=== PATIENT | male | born 1960 | race Caucasian/White ===

== ENCOUNTER → 2018-11-16 | Outpatient (CLI) | payer OTHER ==
[~2018-11-16] VITALS: Ht 165.1 cm; Wt 56.2 kg
[~2018-11-16] MED LIST: ACTOS15 MG PO; ALENDRONATE SOD70 MG PO; ALPRAZOLAM2 MG PO; BASAGLAR K100 UNIT/1 SUBQ; BENTYL 20 MG TA20 M1 PO; BUTALB-APAP-CA1 EACH PO; COL-RITE100 MG PO; FENTANYL PATCH75 MCG; FLONASE 0.05%50 MCG NASAL; GABAPENTIN100 MG PO; GABAPENTIN800 M1 PO; GEMFIBROZIL 60600 M1 PO; GEMFIBROZIL 60600 MG PO; GLUCOPHAGE XR500 MG PO; HYOSCYAMINE0.375 M2 DISSOLVE; LASIX 20 MG TAB20 MG PO; LEVAQUIN 500 M500 M2 PO; LISINOPRIL10 MG PO; LOPERAMIDE 2 MG2 M1 PO; MOBIC15 MG PO; MS CONTIN15 MG PO; NOVOLOG FL100 UNIT/M SUBQ; OMEPRAZOLE40 MG PO; OXYCODONE HCL15 MG PO; PREDNISONE 10 M10 MG PO; RESTASIS1 EACH OPHTHALMIC; SERTRALINE HCL100 MG PO; SKELAXIN 800 M800 M1 PO; TOPAMAX50 MG PO; TRAMADOL 50 MG50 MG PO; TRAZODONE 150150 M1 PO; TYLENOL325 MG PO; VENTOLIN HFA 1818 GM INH; ZOLOFT 50 MG TA50 M1 PO; ZYRTEC10 M2 PO
[2018-11-16 07:08] VITALS: BP 103/61
--- NOTE | 2018-11-16 08:25 | EKG ---
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 : 1960 Requested By: Sean Weeks Order Number: [id number] MD: Randal Salinas Measurements Intervals [place] Rate: 93 P: 51 IL: 122 QRS: 37 QRSD: 75 T: 31 QT: 330 QTc: 411 Interpretive Statements Sinus rhythm Early R-wave progression No previous ECG available for comparison Electronically Signed On 11-16-2018 8:25:38 CDT by Randal Salinas [email or web address] ��������������������������������������������� <ELECTRONICALLY SIGNED> ���������������������������������������� By: Randal Salinas MD, [facility] ��������������������������������������������� 11/16/18 0825 [phone] Randal Salinas MD, FACC /EPI
[2018-11-16 10:05] VITALS: BP 103/61
[2018-11-16 10:09] VITALS: BP 103/61
== END ==
LOC: CATH 06:36
DX: J98.4 Other disorders of lung (principal); F41.9 Anxiety disorder, unspecified; F32.9 Major depressive disorder, single episode, unspecified; G43.909 Migraine, unspecified, not intractable, without status migrainosus; F17.210 Nicotine dependence, cigarettes, uncomplicated; J44.9 Chronic obstructive pulmonary disease, unspecified; I10 Essential (primary) hypertension; K21.9 Gastro-esophageal reflux disease without esophagitis; Z98.890 Other specified postprocedural states; K58.9 Irritable bowel syndrome, unspecified; E11.9 Type 2 diabetes mellitus without complications
CPT/HCPCS: 50010; 70005

== ENCOUNTER 2019-03-14 05:21 | Inpatient (IN) | payer OTHER ==
[2019-03-04 11:19] LABS: ABSOLUTE NEUTROPHILS 4.9 thou/uL (1.4-8.2); BASOPHILS 1.3 % (0.0-2.0); EOSINOPHILS 4.1 % (0.0-3.0); HEMATOCRIT 35.4 % (42.0-52.0); HEMOGLOBIN 11.7 gm/dL (14.0-18.0); LYMPHOCYTES 38.9 % (24.0-44.0); MCH 30.6 pg (26.0-34.0); MCHC 33.1 g/dL (28.0-37.0); MCV 92.6 fL (80.0-100.0); MONOCYTES 5.3 % (1.0-8.0); PLATELET COUNT 330 thou/uL (150-400); POLYS 50.4 % (36.0-66.0); RBC 3.83 mil/uL (4.50-6.00); RDW 16.9 % (10.5-14.5); WBC 9.8 thou/uL (4.0-11.0)
[2019-03-04 11:25] LABS: ALBUMIN 3.6 g/dL (3.4-5.0); CALCIUM 8.7 mg/dL (8.5-10.1); CREATININE 1.9 mg/dL (0.7-1.3); POTASSIUM 4.7 mmol/L (3.5-5.1); TOTAL BILIRUBIN 0.2 mg/dL (<0.1-1.0); TOTAL PROTEIN 7.8 g/dL (6.4-8.2)
[2019-03-04 11:30] LABS: APTT 33.4 Seconds (24.5-32.8); PROTIME 10.4 Seconds (9.3-11.4)
[2019-03-04 12:25] LABS: URINE BILIRUBIN NEGATIVE (Negative); URINE BLOOD NEGATIVE (Negative); URINE CLARITY CLEAR; URINE COLOR YELLOW; URINE GLUCOSE-RANDOM* NEGATIVE (Negative); URINE KETONES NEGATIVE (Negative); URINE LEUKOCYTES-REFLEX NEGATIVE (Negative); URINE NITRITE-REFLEX NEGATIVE (Negative); URINE PROTEIN (DIPSTICK) NEGATIVE (Negative); URINE SPECIFIC GRAVITY 1.025 (1.005-1.035); URINE UROBILINOGEN 0.2 E.U./dl (0.2-1.0)
--- NOTE | 2019-03-04 16:12 | EKG ---
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
[2019-03-14] VITALS (8 sets, daily range): BP systolic 90–119; BP diastolic 34–54
[~2019-03-14] VITALS: Ht 162.6 cm; Wt 72.5 kg
--- NOTE | ~2019-03-14 | HC ---
[facility] [place] [address] CONSULTATION Name: JENNIFER YOON Jocelynn Room #: 244-P [facility] IN M.R.#: [id number] Admission: 03/14/19 Attend Phys: Isai Hurtado MD Discharge: Date of : 64 Report #: [id number] THIS REPORT FOR: //name// CC: Jeffry Hurtado PULMONARY CONSULTATION REFERRING PHYSICIAN: Dr. Hurtado. REASON FOR REFERRAL: Post hypoxia. HISTORY OF PRESENT ILLNESS: The patient is a 58-year-old white male with a history of cavitary lung lesion. Earlier yesterday, patient underwent a right upper lobe lobectomy. A pulmonary consultation requested. The patient is followed longitudinally by Dr. Khris Santos. The patient was found to have cavitary lesion involving the right upper lung field. Chest x-ray also revealed bilateral interstitial infiltrates. The patient had undergone 2 previous bronchoscopies without definitive diagnosis. Of note, from the last bronchoscopy, the culture grew Asha glabrata. Postoperatively, the patient is somewhat confused, restless, hypoxic. Saturation adequate with supplemental oxygen. He does have mild COPD. His previous PFTs showed FEV1 of 2.56 liters, 88% predicted, FEV1/FVC ratio in the past has been around 64%. FVC is normal. PAST MEDICAL HISTORY: As mentioned above including chronic anemia, anxiety disorder, chronic back pain, depression, diabetes mellitus type 2, chronic fatigue, gastroesophageal reflux disease, hypertension, hyperlipidemia, lumbosacral spondylolysis. PAST SURGICAL HISTORY: As mentioned above including carpal tunnel surgery, cholecystectomy, prior neck surgery. ALLERGIES: NABUMETONE, reactions unspecified; SULFA DRUGS, reactions unspecified. HOME MEDICATIONS: List reviewed and this would include Proventil MDI 2 puffs p.r.n., nebulized albuterol p.r.n., Fosamax 70 mg once a day, Xanax 2 mg p.o. at bedtime p.r.n., Zyrtec 10 mg once a day, Restasis eyedrops, Voltaren ointment, Bentyl 20 mg once a day, Flonase 1 squirt each nostril every day, Neurontin 800 mg p.o. t.i.d., Lopid 600 mg p.o. b.i.d., insulin supplements, Ativan, nasal spray 2 puffs every day, Toradol 30 mg IV p.r.n., Mobic 15 mg p.o. every day, Glucophage 500 mg p.o. b.i.d., MS Contin 15 mg twice a day, Prilosec 40 mg once a day, oxycodone 15 mg q. 6 hours p.r.n., Actos 15 mg every day, Zoloft [address] [address] CONSULTATION Name: JENNIFER YOON Room #: 244-P [facility] IN M.R.#: [id number] Admission: 03/14/19 Attend Phys: Isai Hurtado MD Discharge: Date of : 64 Report #: [id number] p.o. every day, trazodone 150 mg once a day. FAMILY HISTORY: Notable for diabetes in the parents. SOCIAL HISTORY: The patient has smoked, but quit several years ago. Smoked about less than a pack a day for 30 years. He denies any alcohol use. REVIEW OF SYSTEMS: As mentioned above, currently is deferred as the patient is confused. PHYSICAL EXAMINATION: GENERAL: He is restless, dyspneic, tolerating BiPAP. VITAL SIGNS: Temperature is 99.0 degrees Fahrenheit, pulse is 110, respiratory rate is 15, blood pressure is 130/66 mmHg, saturation 100%. HEENT: Normocephalic, atraumatic. NECK: Supple, without lymphadenopathy or thyromegaly. CHEST: Breath sounds are mildly coarse bilaterally. No obvious wheezes. Chest wall, status post tube thoracostomy in the right lower chest area. CARDIOVASCULAR: Normal S1, S2. There are no murmurs or gallop. There is no JVD. There is no carotid bruit. Pulses are 2+/4+ bilaterally. ABDOMEN: Soft, nontender, no organomegaly or masses felt. GENITOURINARY: Deferred. RECTAL: Deferred. EXTREMITIES: There is no edema, cyanosis or clubbing. LABORATORY DATA: Portable chest x-ray shows reexpansion of the right lung. Mild bilateral chronic infiltrates are again noted. Electrolytes are normal except for creatinine of 2.7, BUN is 55. Liver enzymes are mildly abnormal. WBC is 13,500, hemoglobin 8.2. Arterial blood gas revealed pH 7.22, pCO2 of 43 and pO2 of 100 on FiO2 of 100%. IMPRESSION: 1. Acute hypoxic respiratory failure in this 58-year-old white male. Etiology probably related to underlying COPD along with undefined interstitial lung disease. Infection may also be considered. Pulmonary embolus is felt to be less likely. 2. Acid base disorder, primarily metabolic acidosis. 3. Chronic kidney disease, acute kidney injury, metabolic acidosis. 4. Interstitial infiltrates, review of his previous chest x-ray showed that infiltrates has been present for some time. 5. Cavitary lung disease, status post right upper lobe lobectomy. Two previous bronchoscopies in the past were performed. On the last bronchoscopy, the culture result grew Asha glabrata. In discussing the case with Dr. Hurtado, the preliminary pathology report suggests no evidence of neoplasm. This might represent an granulomatous process to the possible fungal infection. Consult ID. [facility] [address] [place] [address] CONSULTATION Name: JENNIFER YOON Room #: 244-P ADM IN M.R.#: [id number] Admission: 03/14/19 Attend Phys: Isai Hurtado MD Discharge: Date of : 64 Report #: [id number] 6. Hypertension. 7. Encephalopathy, toxic and metabolic, improving. 8. Chronic pain, spinal stenosis, prior surgical spine surgery. 9. Diabetes mellitus type 2, hypertension, gastroesophageal reflux disease. RECOMMENDATIONS: We will continue noninvasive ventilation, bronchodilators, corticosteroids will be continued. DVT and GI prophylaxis recommended. Await culture results from the lung specimen. Consult Infectious Disease. Thank you for this consultation. By: 1133 1751 Lance Cervantes MD /nt
[~2019-03-14 05:21] MED LIST changes: +ACCUNEB SO1.25 MG/1 INH; +GLUCOSAMINE CH1 EAC4 PO
[2019-03-14 15:40] LABS: BE(vivo) -13.5 mmol/L (-2 to +3); HCO3 15.3 mmol/L (22.0-26.0); pH 7.122 (7.360-7.450); sO2 92.1 % (92.0-98.0)
[2019-03-14 17:40] LABS: BE(vivo) -18.1 mmol/L (-2 to +3); HCO3 9.8 mmol/L (22.0-26.0); PCO2 30.9 mmHg (35.0-45.0); PO2 77.3 mmHg (80.0-100.0); pH 7.117 (7.360-7.450); sO2 90.9 % (92.0-98.0)
[2019-03-14 18:15] LABS: HEMOGLOBIN 9.5 gm/dL (14.0-18.0); MCH 30.5 pg (26.0-34.0); MCV 92.6 fL (80.0-100.0); RBC 3.13 mil/uL (4.50-6.00); RDW 15.6 % (10.5-14.5); WBC 18.3 thou/uL (4.0-11.0)
[2019-03-14 18:28] LABS: ALBUMIN 2.9 g/dL (3.4-5.0); CALCIUM 8.6 mg/dL (8.5-10.1); CREATININE 3.1 mg/dL (0.7-1.3); TOTAL BILIRUBIN 0.2 mg/dL (<0.1-1.0); TOTAL PROTEIN 7.3 g/dL (6.4-8.2)
[2019-03-14 18:30] LABS: POTASSIUM 6.9 mmol/L (3.5-5.1)
[2019-03-14 19:02] LABS: URINE CREATININE-RANDOM* 81.3 mg/dL
[2019-03-14 20:08] LABS: CALCIUM 8.2 mg/dL (8.5-10.1)
[2019-03-14 20:11] LABS: POTASSIUM 6.2 mmol/L (3.5-5.1)
--- NOTE | 2019-03-14 20:40 | NUR ---
1640-RECEIVED PT FROM RR W BIPAP IN PLACE.--VW 1800- UPDATED.ORDERS NOTED.--VW 1830- IN TO SEE.--VW 1900-CARE TURNED OVER TO ONCOMING RN.CONSULT PLACED TO RENAL.CHANEL Rodriguez BUSY X 3 ATTEMPTS-PASSED ONTO [employer] SALES CONSULT NEEDED TO BE PLACED. SPOKE W ~1730 RE:CONSULT.--VW
[2019-03-14 22:45] LABS: URINE BILIRUBIN NEGATIVE (Negative); URINE BLOOD 2+ (Negative); URINE CLARITY SL CLOUDY; URINE COLOR YELLOW; URINE GLUCOSE-RANDOM* NEGATIVE (Negative); URINE KETONES NEGATIVE (Negative); URINE LEUKOCYTES 1+ (Negative); URINE NITRITE NEGATIVE (Negative); URINE PROTEIN (DIPSTICK) TRACE (Negative); URINE UROBILINOGEN 0.2 E.U./dl (0.2-1.0)
[2019-03-14 23:09] LABS: CALCIUM 8.1 mg/dL (8.5-10.1)
[2019-03-14 23:11] LABS: POTASSIUM 4.7 mmol/L (3.5-5.1)
[2019-03-14 23:19] LABS: SQUAMOUS 0-3 Few /LPF (0-3); URINE WBC 0-5 Rare /HPF (0-5)
[2019-03-14 23:20] LABS: AMORPHOUS URATES Few /LPF (None Seen); BACTERIA 1-9 Few /HPF (None Seen); FINE GRANULAR CASTS 0-3 Few /LPF (None Seen); HYALINE CASTS 0-3 Few /LPF (None Seen); MUCUS 0-3 Light strn/LPF (None Seen); URINE RBC 3-10 Few /HPF (0-2)
[2019-03-15] VITALS (35 sets, daily range): BP systolic 77–133; BP diastolic 36–89
[2019-03-15 02:04] LABS: BE(vivo) -9.4 mmol/L (-2 to +3); HCO3 17.6 mmol/L (22.0-26.0); PCO2 43.2 mmHg (35.0-45.0); PO2 101.1 mmHg (80.0-100.0); sO2 96.5 % (92.0-98.0)
[2019-03-15 02:10] LABS: pH 7.228 (7.360-7.450)
--- NOTE | 2019-03-15 02:36 | NUR ---
ASSUMED CARE OF PT AT 1900. PT LETHARGIC ON FIRST ASSESSMENT. BP SOFT. DR MOJICA AT BEDSIDE ASSESSING PT DUE TO CRITICAL LAB VALUES. STAT CONSULT CALLED TO DR GARSIA. ORDERS GIVEN TO TREAT HYPERKALEMINA AT 1946 AND PROVIDER IN ROUTE. DR GARSIA AT BEDSIDE AT 1950. ORDERS GIVEN TO PLACE PT ON BICARB DRIP AND REPEAT BMP. RESULTS CALLED TO DR GARSIA AT 2215. REPEAT HYPERKALEMIA ORDERS (INSULIN, D50, ALBUTEROL) AT [address] GARSIA. BMP RESULTS CALLED TO DR GARSIA AT 2300, NO FURTHER ORDERS GIVEN AT THIS TIME. PT GOT INCREASINGLY MORE AGITATED AT 2330. HE BEGAN THRASHING IN BED. HE WAS ABLE TO IDENTIFY SELF AND WAS ABLE TO ANSWER SIMPEL YES NO QUESTIONS AND FOLLOW SOME COMMANDS WITH A LOT OF ENCOURAGEMENT. SPOKE TO DR RDZ AT 0249 REGARDING CONSULT AND FOLLOW UP ABG AT 0249. ABG IS IMPROVED FROM PREVIOUS. HOWEVER, PT IS STILL SIGNIFICANTLY AGITATED. DR RDZ DISCUSS WITH RN THE RISK OF RESPIRATORY COMPROMISE IF ATIVAN OR NARCOTICS ARE GIVEN. PRECEDEX GTT ORDERED. WILL CONTINUE TO MONITOR PT.
[2019-03-15 04:15] LABS: CREATININE 2.7 mg/dL (0.7-1.3); POTASSIUM 4.7 mmol/L (3.5-5.1)
[2019-03-15 04:21] LABS: HEMOGLOBIN 8.2 gm/dL (14.0-18.0); MCHC 34.2 g/dL (28.0-37.0); MCV 90.6 fL (80.0-100.0); RBC 2.64 mil/uL (4.50-6.00); RDW 15.1 % (10.5-14.5); WBC 13.5 thou/uL (4.0-11.0)
--- NOTE | 2019-03-15 14:58 | NUR ---
met with patient and s/o at bedside. patient rec thoracotomy on 6 liters. Patient lives with s/o in [facility]. He use a cane for amulation. He has flight of steps to living/kitchen area of home. He has a walker but mostly uses a cane. S/O retired and does most cooking and driving. He will be avail to patient at [place]. Discussed post acute care and possible skilled care need. Gave [employer] list to review. Patient does not wear oxygen at home.
--- NOTE | 2019-03-15 18:20 | NUR ---
ASSUMED CARE @ 0700 03/15/19, PT ASSESSMENTS AND VSS COMPLETE PER ICU PROTOCOL. PT ALERT TO SELF, PT VERY CONFUSED, FENTANYL AND HYDROCODONE GIVEN FOR PAIN DURING THIS SHIFT. PT ST-SR ON THE MONITOR, T-MAX 100.6, TYLENOL GIVEN FOR TEMP, TEMP DOWN TO 98.6, ID AWARE OF HIGH TEMP, SECONDARY TO INFECTION. PT ON 4L OF 02 SATS IN HIGH 90'S, PT STILL SOUNDS CRACKLES IN SOME LOBES. PT ON A RENAL DIET, ABLE TOLERATE DIET WHEN PARTNER WAS IN THE ROOM, ACHS ACCUCHECKS , BS COVERED WITH INSULIN DURING THE SHIFT. CARCAMO IN PLACE- GOP NOTED. FALL PRECAUTIONS IN PLACE. PLAN OF CARE- CONT TO MONITOR.
[2019-03-16] VITALS (9 sets, daily range): BP systolic 96–126; BP diastolic 41–57
[2019-03-16 04:45] LABS: ALBUMIN 2.6 g/dL (3.4-5.0); CALCIUM 8.1 mg/dL (8.5-10.1); CREATININE 1.8 mg/dL (0.7-1.3); PHOSPHORUS 2.8 mg/dL (2.5-4.9)
--- NOTE | 2019-03-16 06:30 | NUR ---
END OF SHIFT NOTE. ASSUMED CARE OF PATIENT AT 1900 ON 03/15. UPON ARRIVAL PATIENT WAS ASSESSED AND VITALS TAKEN PER ICU PROTOCOL. PATIENT WAS IN CHAIR, UNCOFRMTABLE AND REQUESTING TO GET BACK TO BED. PATIENTS WAS RESTLESS, AXIOUS MOST OF THE NIGHT. PAIN WAS CONTROLLED WITH PRN PAIN MEDICATIONS, PATIENT WAS STILL UNCOMFROTABLE AND THRASHING IN BED. PATIENT WAS CONSTANTLY ASKING TO BE REPOSITIONED. PRECEDEX GTT WAS STARTED BACK AT 0.2.
--- NOTE | 2019-03-16 08:09 | O ---
[facility] [place] [address] OPERATIVE REPORT Name: JENNIFER DAVILA Room #: 244-P ADM IN M.R.#: [id number] Admission: 03/14/19 Attend Phys: Isai Hurtado MD Discharge: Date of : 64 Report #: [id number] THIS REPORT FOR: //name// CC: Jeffry Hurtado DATE OF SERVICE: 03/14/2019 PREOPERATIVE DIAGNOSIS: Cavitary lesion right upper lobe of lung. POSTOPERATIVE DIAGNOSES: Cavitary lesion right upper lobe of lung. OPERATION: Bronchoscopy, right video-assisted thoracoscopy, right thoracotomy with upper lobectomy. SURGEON: Isai Hurtado M.D. HAND ENDBAND CUTTER: RANDOLPH Pulido. ANESTHESIA: General. INDICATIONS: Jennifer Davila is a 58-year-old seen for Dr. Santos. The patient has a cavitary lesion in the right upper lobe of lung that has been seen to increase in size over serial CT scans and there are other scattered areas of infiltrate in the lung. Our services have been requested largely to obtain a biopsy for histologic diagnosis and to resect the cavitary lesion. FINDINGS AND TECHNIQUE: After general anesthesia was established, flexible diagnostic bronchoscopy was performed. There were scattered thick white secretions in the tracheobronchial tree, but no specific endobronchial lesions were noted. A double lumen endotracheal tube was placed and the patient was positioned with right side up. Exposure was initially obtained through typical video-assisted thoracoscopy ports. There were adhesions between the upper lobe and the parietal pleura and these were dissected and mass was identified in the upper lobe. Because the adhesions were sufficiently dense and numerous and the mass was sufficiently deep, I thought it would be better to perform a thoracotomy. Chest was entered through a posterolateral thoracotomy using the fifth interspace and employing a nerve sparing, rib sparing approach. The remainder of the adhesions were divided and the mass was identified in the [facility] [address] [place] [address] OPERATIVE REPORT Name: JENNIFER DAVILA Room #: 244-P ADM IN M.R.#: [id number] Admission: 03/14/19 Attend Phys: Isai Hurtado MD Discharge: Date of : 64 Report #: [id number] upper lobe. The mass was a bit deep and I tried applying staplers to perform a wedge resection, but I thought that there would be an insufficient lobe left over and that the base of the wedge would be too wide for wedge technique. Therefore, decision was made to perform a lobectomy. Lobectomy was difficult because there were so many adhesions related to inflammatory disease. Prior to embarking on the lobectomy, a needle biopsy using a core needle was used and these were submitted for pathologic consideration. No evidence of malignancy was found, but findings showed evidence of inflammatory disease with suspicion of fungus. As mentioned, lobectomy was performed. Initially, the arterial branches to the upper lobe were ligated and divided. The bronchus was then stapled and divided and then the lobe was peeled inferiorly and the vein to the upper lobe was isolated and stapled and divided. This left the adherent fissures between upper and middle lobe anterior and upper and lower lobe posteriorly and these were divided with serial applications of the stapler. When the lobe was submitted for pathology, samples for fungus were taken with the pathologist present. The bronchial stump was tested and found to be secure. Chest was irrigated with antibiotic solution. Node at the hilum was also dissected for pathologic consideration. Chest tubes were brought through separate stab wounds and then the chest was closed to maintain the rib sparing, nerve sparing approach. The muscular, fascial and skin layers were closed in layers. The patient was taken to the recovery area in good condition. All counts were reported as correct. <ELECTRONICALLY SIGNED> By: Isai Hurtado MD 03/16/19 0809 1449 2108 Isai Hurtado MD /nt
--- NOTE | 2019-03-16 11:48 | HC ---
[facility] [place] [address] CONSULTATION Name: JENNIFER YOON Room #: 244-P ADM IN M.R.#: [id number] Admission: 03/14/19 Attend Phys: Isai Hurtado MD Discharge: Date of : 64 Report #: [id number] THIS REPORT FOR: //name// CC: Jeffry Hurtado INFECTIOUS DISEASE CONSULTATION ATTENDING: Isai Hurtado MD REASON FOR CONSULTATION: Cavitary right upper lung lesion. Isolated Asha glabrata in previous bronchoscopy. HISTORY OF PRESENT ILLNESS: The patient is a 58-year-old white man dealing with a chronic lung condition for a number of months. Apparently, this patient underwent [address] Sean Weeks as being unable to secure a diagnosis. The patient is admitted at this time and he undergoes right upper lung lobectomy by Dr. Hurtado and obviously the results are pending at the time of this dictation. The patient is in the ICU, but I have the suspicions that neither him nor his partner are well versed as to what is going on. I get the information from his partner that he is HIV negative and that he had an HIV done at [facility] this year and it was negative, that he has previous hepatitis C, treated at [facility] prior to the availability of the newest drugs. Anyway in 2014, his hepatitis C serology was positive and the hepatitis C by PCR was negative. Anyhow, this patient has right upper lung cavitary lung lesion as well as multiple nodules on the lungs and bronchiectasis by previous CT scan of the lungs done at [facility] in 10/2018 and 12/2018. There was obvious progression of lesions on the 2 CT scans with thickening of the wall of the cavitary lesion and development of new nodular lesions and progression of bronchiectasis. PAST MEDICAL HISTORY: Diabetes mellitus, hypertension, chronic lung disease with evidence of interstitial changes both bases, more so on the right with bronchiectasis by CT scan as well as cavitary lesion right upper lobe and nodular lesions. The patient has chronic pain syndrome requiring placement of a dorsal column stimulator. Depression. Previous hepatitis C infection, I believe possibly treated with ribavirin and interferon. DRUG ALLERGIES: SULFA, NABUMETONE. MEDICATIONS: The patient is currently on treatment with sodium bicarbonate, Atrovent and albuterol inhalation treatments, subcutaneous heparin every 8 hours, methylprednisolone 40 mg IV every 8 hours, Atrovent and albuterol [address] [address] CONSULTATION Name: JENNIFER YOON Room #: 244-P [facility] IN M.R.#: [id number] Admission: 03/14/19 Attend Phys: Isai Hurtado MD Discharge: Date of : 64 Report #: [id number] inhalation treatments, polyethylene glycol, insulin lispro, sedation with dexmedetomidine which I believe has been stopped now since the patient extubated, fentanyl, famotidine, mupirocin nasally, melatonin, dicyclomine, ____ p.r.n., glucose glucagon, p.r.n., regular insulin drip, ondansetron. He has received 2 doses of cefazolin. SOCIAL HISTORY: The patient lives with his partner. They, I believe, are homosexual and are said to be HIV negative. PHYSICAL EXAMINATION: GENERAL: Chronically ill-appearing man. VITAL SIGNS: Temperature maximum 99.5, pulse 114, respirations 17, BP 108/53, O2 saturation 97% on 6 liters nasal cannula. HEENMT: Pupils reactive. Mouth revealed awful dentition with severe carious teeth and missing teeth. NECK: Supple. CHEST: Right-sided chest tube thoracotomy wound, dressings in place, not removed. LUNGS: Bilateral crackles, more so on the left. HEART: S1, S2. No gallop or murmur. ABDOMEN: Soft, no masses or megaly. GENITALIA AND RECTAL: Deferred. EXTREMITIES: No clubbing or cyanosis. LABORATORY DATA: BUN 55, creatinine 2.7, glucose 151. Alkaline phosphatase 126. Albumin 2.9. WBC 13.5, hemoglobin 8.2, platelets 308,000. Previous hepatitis A, B and C revealed positive hepatitis C antibody and hepatitis C by RNA was negative. His last CD4 lymphocyte count on 11/12/2014 was 690. Fungal serology negative. The urinalysis rather abnormal with microscopic hematuria, bacteriuria, hyaline casts and fine granular casts. The patient has an ongoing abnormalities of his ABGs with a pH 7.22, pCO2 of 43, pO2 of 101, bicarbonate 17.6, lactate all normal. These set of gases is on FiO2 of 50%. MICROBIOLOGY DATA: The latest results from the 03/14 are pending. Previous bronchoscopies revealed Asha glabrata. I suspect this is a contaminant. Pathology reports were all negative. RADIOLOGY EVALUATION: Chest x-ray revealed chronic changes, particularly in the right lung and the CT scan findings as above. ASSESSMENT: 1. Chronic lung disease with bronchiectasis, cavitary lesion right upper lung and nodules particularly on the right lung with chronic changes on the left lung base. 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 2. Diabetes mellitus. 3. Chronic kidney disease. [facility] [address] [place] [address] CONSULTATION Name: JENNIFER YOON Room #: 244-P ADM IN M.R.#: [id number] Admission: 03/14/19 Attend Phys: Isai Hurtado MD Discharge: Date of : 64 Report #: [id number] 4. Severe periodontal disease. 5. 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 SUGGESTIONS: At present, the patient not toxic looking and favor awaiting pathology report to start appropriate treatment, most likely against atypical Mycobacterium. I recommended a repeat HIV serology and the patient's partner tells me that this was done at [facility] recently. Dr. Hurtado thank you for requesting our suggestions. <ELECTRONICALLY SIGNED> By: Teto Dill MD 03/16/19 1148 1552 2330 Teto Dill MD /nt
--- NOTE | 2019-03-16 19:15 | NUR ---
Pt awake most of day and dozed for only brief periods. Precedex gtt- titrated at low doses. Pt medicated frequently for pain at incisional site with little to no relief reported (see emar). Pt reports he does take pain medications on chronic basis at home. Pt was assisted up to bedside chair for a few hours and then returned to bed. OT started working with pt. Sinus tachycardia. BP stable. No apparent difficulty breathing. Congested cough noted this afternoon. Pt enouraged to cough and use IS. Poor appetite. Small BM. Adequate urine output. Chest tubes to -20 cm of suction per Atrium drain. No air leak noted. Adequate urine output. Significant other here today. Reviewed home medications ordered by Dr Hurtado. No changes in dosing or medication. Report given to RN assuming care.
[2019-03-17] VITALS (14 sets, daily range): BP systolic 125–169; BP diastolic 37–89
[2019-03-17 06:04] LABS: HEMOGLOBIN 6.8 gm/dL (14.0-18.0); MCH 30.8 pg (26.0-34.0)
[2019-03-17 06:05] LABS: MCHC 34.3 g/dL (28.0-37.0); MCV 89.8 fL (80.0-100.0); RBC 2.2 mil/uL (4.50-6.00); RDW 14.6 % (10.5-14.5); WBC 8.8 thou/uL (4.0-11.0)
[2019-03-17 06:09] LABS: HEMATOCRIT 19.7 % (42.0-52.0)
[2019-03-17 06:16] LABS: ALBUMIN 2.2 g/dL (3.4-5.0); CALCIUM 8.1 mg/dL (8.5-10.1); CREATININE 1.5 mg/dL (0.7-1.3); PHOSPHORUS 1.9 mg/dL (2.5-4.9); POTASSIUM 3.8 mmol/L (3.5-5.1)
--- NOTE | 2019-03-17 07:00 | NUR ---
Pt awake off and on through the night. Precedex gtt going at low dose for breakthrough restlessness with some effect achieved. PRN fentanyl and hydrocodones given for incisional back pain both with minimal effect. Pt moans and yells out constantly while awake and reassurance provided. SpO2 adequate on current FiO2 and chest tube drainage minimal. Urine output adequate for shift. Am lab results noted, continue with POC.
[2019-03-17 07:07] LABS: HIV ANTIBODY Non Reactive (Non Reactive)
--- NOTE | 2019-03-17 19:30 | NUR ---
Pt is alert and oriented. ESTRADA. Sinus tachycardia with rate up to 120's. Pt febrile this afternoon. Dr Travis and Dr Cervantes informed of temp elevation. Blood cultures, sputum and urine cultures sent to the lab. Pt was transfused with one unit of PRBC. (Dr Travis aware of fever prior to starting transfusion. Orders receiving to proceed). Poor food intake. Started on Ensure per pts request. Pt had large stool x2. Llanes catheter dc'd at 1510 without difficulty. No void since llanes removed. Thoracotomy incisional drsg dry/intact. Right chest tubes intact to single Atrium drain. Pt has required frequent doses of pain medications to control pain. See emar. Pt had episode of anxiety during change of shift. Pt assisted to bedside commode and then to chair. Chair alarm on. Arterial line dc'd today as well-see intervention. Significant other by to visit today. Only slight amount of pain relief reported despite receiving pain medica- tion. BENJI drsg intact and green light is activated.
[2019-03-18] VITALS (11 sets, daily range): BP systolic 124–145; BP diastolic 47–70
--- NOTE | 2019-03-18 05:37 | NUR ---
Pt is continue to have an issue with pain control. I have been giving him fentanyl IV and alternated with [place] PO with little improvement. His lowest pain level was 7 after receiving narcotics. Difficult to get comfort due to hx of chronic pain syndrome. Up in chair x2 in this shift. CT remains inplaced. It is continue to drain very light serosanguneous drainage. No air leak indicates. BENJI dressing remains intacts. C/O being shiver. He has been running low grade temp. But he also received multiple doses of tylenol from [place]. Will obtain labs and will notify my concerns of fever to physician during round this am. Patho and blood cultures result are pending. BP stable. Not progressing toward goals.
[2019-03-18 05:43] LABS: HEMATOCRIT 25.2 % (42.0-52.0); HEMOGLOBIN 8.7 gm/dL (14.0-18.0); MCH 31.5 pg (26.0-34.0); MCHC 34.5 g/dL (28.0-37.0); MCV 91.4 fL (80.0-100.0); RBC 2.76 mil/uL (4.50-6.00); RDW 14.3 % (10.5-14.5); WBC 9.4 thou/uL (4.0-11.0)
[2019-03-18 05:56] LABS: ALBUMIN 2.6 g/dL (3.4-5.0); CALCIUM 8.1 mg/dL (8.5-10.1); CREATININE 1.3 mg/dL (0.7-1.3); PHOSPHORUS 2.9 mg/dL (2.5-4.9); POTASSIUM 3.7 mmol/L (3.5-5.1)
--- NOTE | 2019-03-18 16:40 | NUR ---
patient transferred to from ICU. Just worked with therapy. Discussed post acute care/ skilled care in [place]. patient adamently wants to [place]. He prefers home with . He reports his s/o avail for assistance at home.
--- NOTE | 2019-03-18 17:18 | NUR ---
PT CARE ASSUMED APPROX 1130. PT ALERT AND ORIENTED X4. DENIES SOA. VSS. REPORTS 8-10/10 PAIN IN RIGHT FLANK INCISION AND NECK. PT PAIN MANAGED WITH MULTIPLE MEDICATIONS. PT CONTINUES TO RATE PAIN THIS WAY. DR MOJICA AND HYUN AWARE BUT SINCE CHEST TUBE IS OUT AND PT PLANNED TO DISCHARGE IN AM IT WAS THEIR RECOMMENDATION WAS TO HAVE PT TAKE PAIN MEDS THAT HE TAKES AN OUTPT. MEDS ADJUSTED AND FENT LEFT ON SEP FOR BREAKTHROUGH PAIN. PT AWARE AND EDUCATED. EXERCISE SAT ORDERED AND RT REPORTS THAT THEY WILL DO IN THE AM. HYUN APPROVED AND REQUESTED IT BE DONE EARLY. RT AWARE AND REPORTS THAT HE WILL PASS ON TO OBTAIN EXERCISE SAT EARLY. VSS. BS ELEVATED. SSI MANAGING HYPERGLYCEMIA. PT UP TO CHAIR MOST OF SHIFT. UP WITH MIN ASSIST AND GAITBELT. AMBULATING WITH WALKER. PT INTERMITTENTLY REMOVES NASAL CANNULA. RA SAT WNL FOR SHORT PERIODS OF TIME. FAMILY AT BEDSIDE FOR SHORT TIME EARLIER IN SHIFT. PT AND FAMILY DENY QUESTIONS OR CONCERNS REGARDING POC. CT REMOVED PER HYUN DICKSON WITHOUT ISSUE. RIGHT FLANK BENJI DSG C/D/I. NO DISTRESS NOTED.
--- NOTE | 2019-03-18 19:45 | HC ---
[facility] [place] [address] CONSULTATION Name: JENNIFER YOON Room #: 212-P ADM IN M.R.#: [id number] Admission: 03/14/19 Attend Phys: Isai Hurtado MD Discharge: Date of : 64 Report #: [id number] THIS REPORT FOR: //name// CC: Jeffry Hurtado REASON FOR CONSULTATION: Acute kidney injury with elevated potassium. REASON FOR PRESENTATION: Status post thoracotomy. HISTORY OF PRESENT ILLNESS: This is obtained from the medical chart as the patient is currently going through acute mental status changes and not able to provide me with the history. He is a 58-year-old with past medical history of diabetes mellitus, hypertension. He is also suffering from chronic pain syndrome. He is maintained on meloxicam and metformin as an outpatient; however, those have been recently discontinued as of the , the 13 of this month. Apparently, the patient has a right upper lobe lung lesion for which he has been following the pulmonary team for some time. He had a bronchoscopy back in October of this year and this was negative for malignancy. Repeated serial CT scans revealed the mass is cavitary lesion and it has been enlarging in size. He was admitted to the hospital preoperatively today. Surgery was done. He had a VATS procedure that was converted to an open thoracotomy and upper lobe lobectomy. The patient's creatinine in the preoperative evaluation and as of 02/28/2019 was 1.9. Postoperatively, the patient became obtunded and required CPAP. Blood gas revealed metabolic acidosis with a pH of 7.1. The patient is maintained on Topamax as an outpatient. He is utilizing Topamax for chronic migraine. LABORATORY DATA: Laboratory values revealed that his BUN and creatinine are elevated at 59 and 3.0. He has significant hyperkalemia with a potassium of 6.9. From the renal perspective, the patient's creatinine used to be in the normal range as of 2014. Most recently and in February, he had a creatinine value of 1.9. He does carry a diagnosis of remote history of hepatitis C exposure, chronic low back pain, spinal cord stimulator, diabetes mellitus with diabetic neuropathy, hypertension. Currently, the patient is on CPAP. He is not on any pressors. Urine output so far had been 75 mL. PAST MEDICAL HISTORY: 1. Diabetes mellitus. 2. Hypertension. 3. Chronic right upper lobe cavitary lesion. 4. Chronic pain syndrome. 5. Diabetic neuropathy. 6. Migraine headaches. 7. Depression. 8. [place] [address] CONSULTATION Name: JENNIFER YOON Room #: 212-P [facility]#: [id number] Admission: 03/14/19 Attend Phys: Isai Hurtado MD Discharge: Date of : 64 Report #: [id number] ALLERGIES: BACTRIM. MEDICATIONS: 1. Albuterol. 2. Lisinopril. 3. Meloxicam. 4. Topamax. 5. Furosemide. 6. Metformin. SOCIAL HISTORY: Obtained from the medical record. He is in a monogamous homosexual relationship. He used to abuse IV drugs, but quit recently. Negative HIV in the past. Evaluated by ID in the past. FAMILY HISTORY: Significant for diabetes mellitus on his mother's side. This is obtained from the medical record. REVIEW OF SYSTEMS: Unobtainable given the patient's mental status. PHYSICAL EXAMINATION: GENERAL: The patient is currently on the CPAP. VITAL SIGNS: Pulse rate is 104, respiratory rate is 16, blood pressure is 107/46. HEAD AND NECK: No jugular venous distention. CHEST: Chest tube in place with bilateral crackles and decreased air entry on the right side. CARDIOVASCULAR: Tachycardic with no rub detected. ABDOMEN: Soft, nontender. LOWER EXTREMITIES: No edema. LABORATORY VALUES: Reviewed. We had 2 sets of chemistry this afternoon. First one revealed a potassium of 6.1 and 6.9 and this has come down to 6.2 and the first one revealed a BUN of 54 and a creatinine of 3.1. Second set revealed a BUN of 59, a creatinine of 3.0. Chest x-ray is consistent with the recent lobectomy and a right-sided chest tube with pneumothorax. ASSESSMENT, IMPRESSION AND PLAN: 1. Acute kidney injury. 2. Chronic kidney disease based on the most recent creatinine value of 1.9. 3. Post-thoracotomy, right upper lobectomy. 4. Diabetes mellitus with diabetic neuropathy. The reason for the rapid deterioration in the patient's renal function is not clear to me; however, it did look like that [place] [address] CONSULTATION Name: JENNIFER YOON Room #: 212-P ADM IN M.R.#: [id number] Admission: 03/14/19 Attend Phys: Isai Hurtado MD Discharge: Date of : 64 Report #: [id number] acute full-blown kidney injury with hyperkalemia and metabolic acidosis. Differential diagnosis includes acute tubular necrosis, prerenal from anesthesia related relative hypotension while under the induction. We will initiate the appropriate workup for acute kidney injury. The patient's hyperkalemia has been treated medically. There is no evidence of EKG changes and this should improve with the medical treatment. Initiate sodium bicarbonate drip. Follow urine output and electrolytes. Avoid nephrotoxins. Continue to hold metformin, meloxicam, lisinopril, Lasix. We will continue to follow with you, at this point there is no indication for any emergent hemodialysis. <ELECTRONICALLY SIGNED> By: Tim Church MD 03/18/19 1945 [id number] Tim Church MD /nt
[2019-03-19 04:16] VITALS: BP 145/69
--- NOTE | 2019-03-19 04:26 | NUR ---
ASSESSMENT CHARTED. VSS. PT C/O RIGHT FLANK PAIN CONTROLED WITH SCHEDULED AND PRN PAIN MEDS PER EMAR. BENJI IN PLACE. RIGHT FLANK DRESSING REDRESSED. X1 ASSIST TO BATHROOM PT TAKES TIME. SLEEPING WELL IN CHAIR PT STATES MORE COMFORTABLE ALARMS ON. WILL CONTINUE TO MONITOR AND WITH POC.
[2019-03-19 05:31] LABS: ALBUMIN 2.6 g/dL (3.4-5.0); CALCIUM 7.9 mg/dL (8.5-10.1); PHOSPHORUS 2.2 mg/dL (2.5-4.9); POTASSIUM 3.6 mmol/L (3.5-5.1)
[2019-03-19 07:38] VITALS: BP 128/63
[2019-03-19 11:29] VITALS: BP 141/72
--- NOTE | 2019-03-19 13:16 | NUR ---
PT REQUESTING TO GO HOME AND MOR PAIN MEDICATION. PT UP TO WALK WITH OT. WEANING DOWN OXYGEN AND INFORMING PT TO LIMIT HIS NARCOTIC USE AND TRY ALTERNATIVE METHODS FOR PAIN CONTROL. WILL CONTINUE TO ASSESS.
[2019-03-19 13:30] VITALS: BP 141/72
[2019-03-19 14:34] VITALS: BP 141/72
--- NOTE | 2019-03-19 15:07 | PATH ---
[facility] [place] [address] PATHOLOGY RPT PROCEDURE Name: JENNIFER DAVILA Room #: 212-P ADM IN M.R.#: [id number] Admission: 03/14/19 Date of : 64 Discharge: Report #: [id number] Path Case #: [id number] [facility] Accession Number: [id number] . 01 Material submitted: . PART A: lung - RIGHT UPPER LOBE NEEDLE BIOPSY FS. Modifiers: right, upper PART B: lymph node - RIGHT HILAR LYMPH NODE. Modifiers: right PART C: lung - RIGHT UPPER LOBE. Modifiers: right, upper PART D: lymph node - SECOND HILAR NODE . 01 Clinical history: . Right lung lesion, cavitary . 02 Frozen section diagnosis: . INTRAOPERATIVE CONSULTATION WITH FROZEN SECTION: (Dr. Ashok Ham) FSA1. Right upper lobe needle biopsy: - Fibrosis, inflammation, and spheroid bodies. . These findings are discussed with Dr. Hurtado on 03/14/19 at 09:[address] Ashok Ham. (MAP:[facility]; 03/14/2019) . . FROZEN SECTION GROSS DESCRIPTION A. Received fresh for frozen section, labeled, "Jennifer Davila - Right upper lobe needle biopsy", are multiple cores of brown-gomes soft tissue measuring 1 mm in diameter and ranging from 0.3 cm to 1.5 cm in greatest length. The specimen is entirely submitted for frozen section in block FSA1. The remainder of this tissue is submitted for permanent examination in block A1. (MAP:[facility]; 03/14/2019) . . Frozen section performed at [facility], [address] , [place] [address]. XPL/QLM . 03 Diagnosis: A. Lung, right upper lobe, needle biopsy: - Fragments of lung parenchyma with abundant caseating granulomata. - Negative for carcinoma. . B. Lymph node, right hilar, excision: - One benign reactive lymph node. . C. Lung, right upper lobe, lobectomy: - Lung with extensive caseating granulomata and associated fungal [facility] [address] [address] PATHOLOGY RPT PROCEDURE Name: JENNIFER DAVILA Room #: 212-P ADM IN M.R.#: [id number] Admission: 03/14/19 Date of : 64 Discharge: Report #: [id number] Path Case #: [id number] organisms compatible with cryptococcus species. - Negative for malignancy. - See comment. . D. "Second hilar node", excision: - One benign reactive lymph node with associated anthracotic pigment. - Negative for carcinoma. (MAP:[facility]; 03/19/2019) QMS/03/19/2019 . 03 Comment: C. Right upper lobe - special stains are performed and ordered to characterize the present fungal organisms. An AFB special stain is negative. A GMS stain highlights spherical fungal organisms, which are also positive for mucicarmine. These findings favor a cryptococcus species. Correlation with cultures is recommended. (Special stains are performed on block C9 with appropriately reactive controls). . Co-review: Dr. Enriquez . (MAP:[facility]; 03/19/2019) . 03 Electronically signed: . Ashok Ham MD, Pathologist NPI- [id number] . 01 Gross description: . A. SEE FROZEN SECTION GROSS DESCRIPTION . B. The specimen is received in formalin, labeled "Jennifer Davila, right hilar lymph node". Received is a segment of benson-brown lobulated tissue measuring 1.0 x 0.7 x 0.4 cm in greatest dimensions. Sectioning reveals benson-gomes cut surfaces. The specimen is bisected and entirely submitted in cassette B1. . C. The specimen is received in formalin, labeled "Jennifer Davila, right upper lobe". Received is a 242 g lobectomy specimen measuring 14.6 x 9.1 x 5.4 cm in greatest dimensions with a stapled margin of resection. The pleural surface is pink-benson and intact. The gamaliel are removed and the new margin is inked black. Sectioning reveals four distinct masses. The opposing serosal surfaces of each mass are inked blue, red, orange, and green, in order of description. The first mass is poorly circumscribed and white-gomes to benson-gomes in appearance and measures 3.8 x 1.5 x 1.5 cm, and is 0.3 cm from the pleural surface (blue ink), and 0.7 cm from the surgical margin (black ink). 0.8 cm adjacent to the first mass, there is a second mass which is poorly circumscribed and pale gomes to benson-gomes measuring 2.6 x 1.2 x 1.0 cm, which is 0.1 cm from the pleural surface [address] [place] [address] PATHOLOGY RPT PROCEDURE Name: JENNIFER DAVILA Room #: 212-P ADM IN M.R.#: [id number] Admission: 03/14/19 Date of : 64 Discharge: Report #: [id number] Path Case #: [id number] (red ink), and grossly approaches from the surgical margin (black ink). This mass is also immediately adjacent to tertiary bronchioles. 2.2 cm adjacent to the second mass, there is a third mass which is poorly circumscribed, pale gomes to benson-gomes in appearance and measures 6.2 x 2.8 x 1.7 cm in greatest dimensions, which grossly approaches the pleural surface (orange ink), is 1.0 cm from the secondary bronchus, and grossly approaches the surgical margin (black inked). 1.9 cm from the third mass, there is a fourth mass which is poorly circumscribed, benson-gomes to yellow-gomes and slightly cavernous in appearance measuring 3.8 x 2.9 x 2.0 cm, which is 0.4 cm from the pleural surface (green ink), 0.3 cm from the bronchus, and 1.8 cm from the surgical margin (black ink). All four masses encompass approximately 35% of the lobe. The remaining parenchyma is red-brown and spongy in appearance. The hilar surface reveals no grossly distinct lymph nodes. The specimen is submitted representatively as follows: . C1 bronchial margin C2 telephone sales representative section of first mass to show relationship with surgical margin (black ink) C3 telephone sales representative section of first mass to show relationship with pleural surface (blue ink) C4 telephone sales representative section of second mass to show relationship with pleural surface and surgical margin (red and black ink) C5 additional telephone sales representative section of second mass C6 telephone sales representative section of third mass to show relationship with pleural surface (orange ink) C7 telephone sales representative section of third mass to show relationship with surgical margin (black ink) C8 telephone sales representative section of third mass to show relationship with secondary bronchus C9 telephone sales representative section of fourth mass to show relationship with pleural surface (green ink) C10 telephone sales representative section of fourth mass to show relationship with bronchus C11 uninvolved parenchyma. . D. The specimen is received in formalin, labeled "Jennifer Davila, second hilar node". Received is a segment of red-brown to brown-black tissue measuring 2.8 x 1.5 x 1.0 cm in greatest dimensions. Sectioning reveals a single lymph node measuring 1.2 cm displaying benson-brown to slightly anthracotic cut surfaces. The lymph node is bisected and entirely submitted in cassette D1. ([facility]; 03/15/2019) QA/QLM . 03 Pathologist provided ICD-10: J84.10, J18.9 . [address] [address] PATHOLOGY RPT PROCEDURE Name: JENNIFER DAVILA Room #: 212-P ADM IN M.R.#: [id number] Admission: 03/14/19 Date of : 64 Discharge: Report #: [id number] Path Case #: [id number] [facility] . [id number], [id number] Specimen Comment: A courtesy copy of this report has been sent to Specimen Comment: [phone], . Specimen Comment: Report sent to / DR CASTLE Performed at: [address], [place], [place] [id number] MD Leonides Carrasquillo MD Phone: [phone] Performed at: [address] [id number] MD Tamara Cherry MD Phone: [phone] Performed at: [address] [id number] MD Parul Cheatham MD Phone: [phone]
[2019-03-19] MEDS ORDERED: BASAGLAR K100 UNIT/1 SUBQ (15:46)
[2019-03-19] MEDS ORDERED: DIFLUCAN200 MG PO (15:50)
--- NOTE | 2019-03-19 16:06 | NUR ---
FAXED REFERRAL TO [facility] O2 SPOKE WITH DAVID AND SHE RECEIVED REFERRAL AND HAD A 02 TANK DELIVERED TO PT'S . PT WILL F/U WITH [facility] IN [place], [place] #[phone]. FAXED REFERRAL TO [facility] SPOKE WITH KASH IN ADM SHE RECEIVED REFERRAL AND WILL REVIEW. PT TO [place] TODAY.
--- NOTE | 2019-03-19 16:10 | NUR ---
DR. MOJICA CAME TO ROOM TO DISCHARGE PT. INSTRUCTED TO DISCONTINUE BENJI DRESSING AND PLACE NEW DRESSING ON SIRGICAL INCISION WHICH IS CDI. PT UNDERSTANDS ALL FOLLOW UP ORDERS. IV AND TELE DISOCNTINUED. DR. OSBORN REQUEST THAT PT WAIT FOR HIM TO GO OVER PATHOLOGY REPORT. WILL DISCHARGE TO [facility] AFTER THAT.
== END 2019-03-19 16:40 | disposition home or self-care (01) | DRG 163 ==
LOC: PRE 05:21 → TBA 05:54 → ICU 05:54 → PRE 08:40 → ICU 16:37 → PRE 17:14 → 2N 03-18 11:10 → ENTRNSPT 03-19 16:01 → 2N 03-19 16:40 → PRE 03-24 06:18
PROVIDERS: Hospitalist; Internal Medicine Infectious Disease; Internal Medicine Nephrology; Physician Assistant; Student in an Organized Health Care Education/Training Program; ADMIT Surgery Vascular Surgery
DX: J98.4 Other disorders of lung (principal); J96.01 Acute respiratory failure with hypoxia; N17.9 Acute kidney failure, unspecified; E87.2 Acidosis; R91.8 Other nonspecific abnormal finding of lung field; I10 Essential (primary) hypertension; E11.40 Type 2 diabetes mellitus with diabetic neuropathy, unspecified; G43.909 Migraine, unspecified, not intractable, without status migrainosus; N18.9 Chronic kidney disease, unspecified; E11.22 Type 2 diabetes mellitus with diabetic chronic kidney disease; E87.5 Hyperkalemia; B19.20 Unspecified viral hepatitis C without hepatic coma; J47.9 Bronchiectasis, uncomplicated; M48.02 Spinal stenosis, cervical region; K05.6 Periodontal disease, unspecified; I95.9 Hypotension, unspecified; M54.5 Low back pain; G89.29 Other chronic pain; K21.9 Gastro-esophageal reflux disease without esophagitis; D64.9 Anemia, unspecified; E78.5 Hyperlipidemia, unspecified; E83.39 Other disorders of phosphorus metabolism; F32.9 Major depressive disorder, single episode, unspecified; F41.9 Anxiety disorder, unspecified; Z98.1 Arthrodesis status; Z90.49 Acquired absence of other specified parts of digestive tract; Z79.84 Long term (current) use of oral hypoglycemic drugs; Z53.32 Thoracoscopic surgical procedure converted to open procedure; Z87.891 Personal history of nicotine dependence; Z79.899 Other long term (current) drug therapy; Z88.2 Allergy status to sulfonamides; Z88.8 Allergy status to other drugs, medicaments and biological substances; Z83.3 Family history of diabetes mellitus
CPT/HCPCS: 10078; 10081; 47405; 50010; 50101; 50386; 50417; 50455; 50497; 50739; 50740; 51046; 51301; 51609; 52191; 52265; 52266; 52301; 52303; 54118; 56524; 56525; 56526; 56527; 56528; 57115; 62110; 62900; 65020; 65040; 65105; 70005; 85076

== ENCOUNTER → 2019-04-04 | Outpatient (CLI) | payer OTHER ==
[~2019-04-04] MED LIST changes: +DIFLUCAN200 MG PO
[2019-04-04 10:48] LABS: HEMATOCRIT 34.4 % (42.0-52.0); HEMOGLOBIN 11.4 gm/dL (14.0-18.0); MCH 31.8 pg (26.0-34.0); MCHC 33.1 g/dL (28.0-37.0); MCV 96.2 fL (80.0-100.0); RBC 3.58 mil/uL (4.50-6.00); RDW 15.7 % (10.5-14.5)
[2019-04-04 11:01] LABS: APTT 30.1 Seconds (24.5-32.8); PROTIME 10.1 Seconds (9.3-11.4)
[2019-04-04 12:53] LABS: VOLUME 12 ml
[2019-04-04 13:00] LABS: CSF GLUCOSE 61 mg/dL (40-70); CSF PROTEIN 87 mg/dL (15-45)
[2019-04-04 14:06] LABS: CSF EOSINOPHILS 1 %; CSF LYMPHOCYTES 45 %
[2019-04-04 14:07] LABS: CSF POLYS 41 %
== END | disposition home or self-care (01) ==
LOC: RAD 09:32
PROVIDERS: Radiology Vascular & Interventional Radiology; Specialist
DX: B45.1 Cerebral cryptococcosis (principal); Z88.2 Allergy status to sulfonamides; Z79.899 Other long term (current) drug therapy; Z79.4 Long term (current) use of insulin; Z79.01 Long term (current) use of anticoagulants